=== PATIENT | female | born 1995 | race Caucasian/White ===

== ENCOUNTER 2018-01-22 19:02 | Emergency (ER) | END 2018-01-22 23:14 | disposition home or self-care (01) ==

== ENCOUNTER 2018-12-25 18:42 | Inpatient (IN) | payer OTHER ==
[~2018-12-25] VITALS: Ht 160 cm; Wt 65.8 kg
[~2018-12-25 18:42] MED LIST: PREN-19 PO
[2018-12-25 18:55] VITALS: Ht 160 cm; Wt 65.8 kg
[2018-12-25 18:56] VITALS: BP 112/69; PULSE 94; RESP 19
[2018-12-25] MEDS ORDERED: MAGNESIUM SULFATE 4 GM/100 ML 100 ML IV SCH (20:30)
[2018-12-25] MEDS: LACTATED RINGER'S 1,000 ML IV SCH (21:16)
[2018-12-25] MEDS: MAGNESIUM SULFATE 20 GM/500 ML 500 ML IV SCH (21:41)
[2018-12-25] MEDS: BETAMET NA PHOS/AC(6 MG/ML) 2 ML INJ SYG IM SCH (23:42)
--- NOTE | 2018-12-26 02:36 | TRIAGE ---
OB Triage Datetime Report Generated by CPN: 12/26/2018 02:36 Datetime: 12/26/2018 02:00 Labor Evaluation Frequency: X1 Monitor Mode: External Duration (sec)2399: 40 Quality: Mild Resting Tone Leighton: Relaxed Pain Presence: None/Denies Datetime: 12/26/2018 01:00 Labor Evaluation Frequency: X2 Monitor Mode: External Duration (sec)2399: 50-80 Quality: Mild Resting Tone Leighton: Relaxed Datetime: 12/26/2018 00:00 Labor Evaluation Frequency: X5 Monitor Mode: External Duration (sec)2399: 40-80 Quality: Mild Resting Tone Leighton: Relaxed Pain Assessment Pain Scale: 3 Pain Presence: Intermittent Pain Type: Contraction Pain Location: Abdomen Pain Relief Measures: Comfort Measures Pain Assessment Comments: 3 Datetime: 12/25/2018:56 Stage of : Antepartum Assessment Type: Ongoing Assessment Maternal Assessment Level of Consciousness: Fully Conscious DTR's/Clonus: DTRs 2+; No Clonus Headache: Denies Blurred Vision: No Respiratory Effort: Unlabored; Regular Rhythm; Equal Expansion Breath Sounds, Left: Clear and Equal Breath Sounds, Right: Clear and Equal Nausea/Vomiting: Denies RUQ Epigastric Pain: Denies Lower Extremities Edema: None Degree: None Upper Extremities Edema: None Degree: None Facial Edema: None Temperature Route: Oral Fall Risk Assessment History of Falling: (0) No Secondary Diagnosis: (0) No Ambulatory Aid: (0) Bedrest/Nurse Assist IV Therapy: (0) No Gait: (0) Normal/Bedrest/Immobile Mental Status: (0) Oriented to Own Ability Fall Score: 0 Fall Risk Score Definition: No Risk: No action required Pain Presence: None/Denies Datetime: 12/25/2018 22:00 Stage of : Labor Labor Evaluation Frequency: 2-6 Monitor Mode: External Duration (sec)2399: 40-60 Resting Tone Leighton: Relaxed Pain Assessment Pain Scale: 0 Pain Presence: None/Denies Pain Type: N/A Pain Relief Measures: Comfort Measures Datetime: 12/25/2018 21:18 Stage of : Antepartum Datetime: 12/25/2018 20:59 Stage of : OB Triage Labor Evaluation Frequency: 3-5 Monitor Mode: External Duration (sec)2399: 40-60 Resting Tone Leighton: Relaxed Datetime: 12/25/2018 20:01 Stage of : OB Triage Labor Evaluation Frequency: occasional Monitor Mode: External Resting Tone Leighton: Relaxed Heart Rate FHR Baseline Rate: 140 Monitor Mode: External US Variability: Moderate 6-25 bpm Accelerations: 15X15 Datetime: 12/25/2018 19:01 Assessment Type: Triage Maternal Assessment Level of Consciousness: Fully Conscious DTR's/Clonus: DTRs 2+; No Clonus Headache: Denies Blurred Vision: No Respiratory Effort: Unlabored; Regular Rhythm; Equal Expansion Breath Sounds, Left: Clear and Equal Breath Sounds, Right: Clear and Equal Nausea/Vomiting: Denies RUQ Epigastric Pain: Denies Lower Extremities Edema: None Degree: None Upper Extremities Edema: None Degree: None Facial Edema: None Fall Risk Assessment History of Falling: (0) No Secondary Diagnosis: (0) No Ambulatory Aid: (0) Bedrest/Nurse Assist IV Therapy: (0) No Gait: (0) Normal/Bedrest/Immobile Mental Status: (0) Oriented to Own Ability Fall Score: 0 Fall Risk Score Definition: No Risk: No action required Datetime: 12/25/2018 19:00 Labor Evaluation Frequency: 0 Monitor Mode: External Pattern: Normal: <= 5 Contractions in 10 Minutes Resting Tone Leighton: Relaxed Heart Rate FHR Baseline Rate: 150 Monitor Mode: External US Variability: Moderate 6-25 bpm Accelerations: 10X10 Decelerations: None Category: Category I Datetime: 12/25/2018 18:59 Time of Arrival: 12/25/2018 18:36 EGA: 27.4 Arrived By: Ambulatory Arrived From: Home Chief Complaint: UC'S AND BACK PAIN SINCE 1000 Movement: Present Contractions: Irregular Time Contractions Began: 12/25/2018 10:00 Rupture of Membranes: Denies Vaginal Discharge: Denies Recent Sexual Intercouse: Denies Abdominal Trauma: Not Applicable Patient Complaints: Contractions; Cramping Time Provider Notified: 12/25/2018 19:25 Provider Notified: ALAN Initial Plan: NST UA AND BPP
[2018-12-26] MEDS: MAGNESIUM SULFATE 20 GM/500 ML 500 ML IV SCH ×2 (06:33→15:41)
[2018-12-26] MEDS: LACTATED RINGER'S 1,000 ML IV SCH ×2 (06:34→20:55)
[2018-12-26] MEDS ORDERED: PRENATAL VITAMIN PO SCH (09:00)
--- NOTE | 2018-12-26 15:17 | HP ---
Date/Time of Note Date/Time of Note DATE: 12/26/18 TIME: 15:13 OB - History Hx of Present Free Text/Dictation 23-year-old female 4 para 2 AB 1 at 27+ weeks gestation admitted complaining of a onset of labor contractions uterine cramps started p.m. of the 12/25/2018 She denied rupture of membrane no vaginal bleeding Last Menstrual Period: Jun 21, 2018 Estimated Due Date: Mar 22, 2019 : 4 Para: 2 Spontaneous : 1 Care: Good Care Ultrasounds: Normal mid trimester US Obstetrical Complications: Other (1 of the previous pregnancies with Down syndrome) Medical Complications: None Past Family/Social History * Past Medical, Surgical, Family and Obstetric Histories reviewed from chart. Blood Type: O+ Rubella: immune RPR/VDRL: Negative GBS Status: Unknown HBsAG: Negative OB Admission Exam Vital Signs Vital Signs Vital Signs Date Temp Pulse Resp B/P (MAP) Pulse Ox O2 O2 Flow FiO2 Time Delivery Rate 12/25/18 98.4 94 19 112/69 Room Air 18:56 (83) Physical Exam HEENT: WNL Heart: Rhythm Normal Lungs: Clear, Equal Abdomen: WNL Extremities: Normal Reflexes: Normal Cervical Dilatation: None Effacement: 25% Station: -3 Amniotic Fluid: Clear Heart Rate: 140's Accelerations: Accelerations Present Decelerations: No Decelerations Varibility: Marked Contractions on Admission: 6-10 Minutes Apart Date/Time Contractions Began: 12/25/2018 and p.m. Frequency of Contractions: Every 5 to 6 minutes Duration: Over 1 minute Intensity: Mild Last 72 hours Lab Results CBC & BMP 12/25/18 19:42 Magnesium Level Test 12/26/18 06:52 12/26/18 12:14 Magnesium Level 5.7 *H 6.3 *H OB Assessment/Plan Other Assessment: contractions Short cervix Other plan: Magnesium sulfate for neuro prophylaxis Steroids for lung maturation ROBERT REIS MD Dec 26, 2018 15:17
--- NOTE | 2018-12-26 15:23 | PN ---
Date/Time of Note Date/Time of Note DATE: 12/26/18 TIME: 15:22 OB Subjective Subjective Subjective No complaint of uterine contractions Complaint of feeling "dizzy" OB Objective Objective Objective Vital signs are stable as well as general physical exam On electronic monitoring no uterine contractions seen OB Assessment/Plan Reason for admission: labor Other Assessment: Short cervix and contractions Other plan: Decreased magnesium sulfate rate to 1.5 g every hour Continue to monitor vital signs and continue on steroids dose ROBERT REIS MD Dec 26, 2018 15:23
[2018-12-26] MEDS: BETAMET NA PHOS/AC(6 MG/ML) 2 ML INJ SYG IM SCH (23:46)
[2018-12-27] MEDS: MAGNESIUM SULFATE 20 GM/500 ML 500 ML IV SCH (04:54)
[2018-12-27] MEDS: LACTATED RINGER'S 1,000 ML IV SCH (08:06)
--- NOTE | 2018-12-27 17:33 | DS ---
Date/Time of Note Date/Time of Note DATE: 12/27/18 TIME: 17:32 Obstetrical Discharge Record Final Diagnosis Final Diagnosis: not delivered Other Final Diagnosis uterine contractions and short cervix Complications Tocolytics: Magnesium Sulfate, Other (Nifedipine) Condition on Discharge Physical Assessment Voiding: Yes Bowel Movement: Yes Breast: Soft, non-tender, Filling Fundus: Other Abdomen and Incision: Abdomen is gravid fundal height is 27 Calf Tenderness: No Patient Condition: Good ROBERT REIS MD Dec 27, 2018 17:33
--- NOTE | 2018-12-27 17:36 | DS ---
Date/Time of Note Date/Time of Note DATE: 12/27/18 TIME: 17:35 Discharge Summary Admission/Discharge Info Admit Date/Time Dec 25, 2018 at 20:37 Discharge Date/Time 12/27/2018 Discharge Diagnosis labor and short cervix Patient Condition: Good Hx of Present Illness 23-year-old female admitted with uterine cramps and complaint of contra ctions Symptoms were totally subsided on magnesium sulfate and p.o. nifedipine Hospital Course Patient had uncomplicated hospitalization course Discharge home and his second hospitalization day with good prognosis and condition fully ambulatory on regular diet Was told to have pelvic and bedrest until delivery And also was told to refer to clinic in 2 to 3 days for follow-up Home Meds Reported Medications Vit-Iron,Carbonyl-FA (Prenatabs Rx) 1 Tab Tablet, 1 TAB PO 09/23/13 Follow-up Plan Within a week Primary Care Provider Not On Staff Doctor Time spent on discharge: > 30 minutes Pending Labs Laboratory Tests Test 12/26/18 18:18 12/27/18 00:28 12/27/18 07:15 12/27/18 11:40 Magnesium 4.9 5.4 5.8 5.5 Level mg/dl (1.7-2.5) mg/dl (1.7-2.5 mg/dl (1.7-2.5 mg/dl (1.7-2.5 ) ) ) ROBERT REIS MD Dec 27, 2018 17:36
--- NOTE | 2018-12-27 17:59 | PD.PPDC ---
[facility] Discharge Instruction Provider Information Physician Information 23-year-old female admitted with short cervix and contractions are not tocolysis of contractions Diagnosis [id number] Final Diagnosis: Vzead0o Short cervix and contractions Condition Mtyat0Dm Patient Condition: Utpgh0t Good Diet Idvbd7Ex Diet: Ndwmh7z Resume Regular Diet Activity/Restrictions Onetv7Zn Activity: Hpyfu6r May Shower Imbuv5Ni Restrictions: Satzg4l No Exercising No Lifting Nothing in the Vagina Nrbic2Cj Return to Work or School: Iván Dec 27, 2018 (After delivery) Follow-up Follow-up with Physician: 2, Day/Days (In clinic for follow-up) Return to clinic for Comment: Pelvic and bedrest until delivery ROBERT REIS MD Dec 27, 2018 17:59
[2018-12-27] MEDS ORDERED: NIFEdipine 10 MG CAP PO SCH (18:00)
[2018-12-27] MEDS ORDERED: PROG100C5 VAG (18:01)
[2018-12-27] MEDS ORDERED: NIFE10CA PO (18:01)
[2018-12-27] MEDS ORDERED: PROGESTERONE 100 MG CAP VAG SCH (21:00)
== END 2018-12-27 20:20 | disposition home or self-care (01) | DRG 832 ==
LOC: OBT 18:42 → L-D 18:42 → OBT 20:15 → PP1 20:37
PROVIDERS: ADMIT Obstetrics & Gynecology; ATTEND Obstetrics & Gynecology
DX: O47.02 False labor before 37 completed weeks of gestation, second trimester (principal); O26.872 Cervical shortening, second trimester; Z3A.27 27 weeks gestation of pregnancy
CPT/HCPCS: 76815; 76817; 76818; 81003; 83735; 85025; 87086; G0463; J0702; J3475; J7120

== ENCOUNTER 2019-03-09 02:30 | Inpatient (IN) | payer OTHER ==
[~2019-03-09] VITALS: Ht 162.6 cm; Wt 68.2 kg
[~2019-03-09 02:30] MED LIST changes: +CALC600T24 PO; +FERR134T PO; +NIFE10CA PO; +PROG100C5 VAG
[2019-03-09 03:08] VITALS: BP 121/73; PULSE 80; RESP 18
[2019-03-09] MEDS ORDERED: LACTATED RINGER'S 1,000 ML IV SCH ×2 (03:46→16:36)
[2019-03-09] MEDS ORDERED: AMPICILLIN 2 GM/NS (PMX) 100 ML IVPB ONE (04:00)
[2019-03-09] MEDS ORDERED: METHYLERGONOVINE 0.2 MG INJ IM PRN ×2 (04:00→17:00)
[2019-03-09] MEDS ORDERED: CEFAZOLIN 2 GM/50 ML (PMX) 50 ML IVPB SCH (04:00)
[2019-03-09] MEDS ORDERED: CARBOPROST 250 MCG INJ IM PRN ×2 (04:00→17:00)
[2019-03-09] MEDS ORDERED: OXYTOCIN 30 UNITS/LR 500 ML IV SCH (04:00)
[2019-03-09] MEDS ORDERED: OXYTOCIN 30 UNITS/LR 500 ML IV PRN ×2 (04:00→17:00)
[2019-03-09] MEDS ORDERED: MISOPROSTOL 200 MCG TAB PR PRN ×2 (04:00→17:00)
[2019-03-09] MEDS ORDERED: AMPICILLIN 1 GM/NS (PMX) 50 ML IVPB SCH (08:00)
[2019-03-09] MEDS ORDERED: LACTATED RINGER'S 1,000 ML IV ONE (08:42)
[2019-03-09] MEDS ORDERED: METOCLOPRAMIDE 10 MG INJ IV ONE (09:00)
[2019-03-09] MEDS ORDERED: FAMOTIDINE 20 MG INJ IV ONE (09:00)
[2019-03-09] MEDS ORDERED: CITRIC ACID/NA CITRATE 30 ML CUP PO ONE (09:00)
[2019-03-09] MEDS ORDERED: morphine SULFATE/PF (10 MG/10 ML) INJ ONE (11:54)
[2019-03-09] MEDS ORDERED: ONDANSETRON 4 MG INJ ONE (12:33)
[2019-03-09] MEDS ORDERED: PHENYLephrine (100 MCG/ML) 10ML SYG ONE ×2 (12:36→12:50)
[2019-03-09] MEDS ORDERED: OXYTOCIN 30 UNITS/LR 500 ML IV ONE (12:50)
[2019-03-09] MEDS ORDERED: DIPHENHYDRAMINE 50 MG INJ IV PRN ×3 (13:00→17:00)
[2019-03-09] MEDS ORDERED: ZOLPIDEM 5 MG TAB PO PRN ×2 (13:00→17:00)
[2019-03-09] MEDS ORDERED: MEPERIDINE 25 MG INJ IV PRN (13:00)
[2019-03-09] MEDS ORDERED: PROCHLORPERAZINE 10 MG INJ IV PRN (13:00)
[2019-03-09] MEDS ORDERED: HYDROmorphONE 0.5 MG/0.5 ML SYG IV PRN ×2 (13:00)
[2019-03-09] MEDS ORDERED: ONDANSETRON 4 MG INJ IV PRN ×3 (13:00→17:00)
[2019-03-09] MEDS ORDERED: NALOXONE (0.4 MG/ML) INJ IV PRN (13:00)
[2019-03-09] MEDS ORDERED: HYDROmorphONE 1 MG/5 ML IV SYRINGE IV PRN ×3 (13:00)
[2019-03-09] MEDS ORDERED: KETOROLAC 30 MG INJ IV PRN ×2 (13:00)
[2019-03-09] MEDS ORDERED: FENTAnyl 50 MCG/ML VIAL IV PRN ×3 (13:00)
[2019-03-09] MEDS ORDERED: EPHEDrine 25 MG/5 ML SYG ONE (13:17)
[2019-03-09 16:30] VITALS: BP 98/57; PULSE 67; RESP 18
[2019-03-09 16:45] VITALS: BP 109/55; PULSE 68; RESP 18
[2019-03-09] MEDS ORDERED: OXYCODONE/ACETAMINOPHEN (5/325) TAB PO PRN ×2 (17:00)
[2019-03-09] MEDS ORDERED: LANOLIN HPA 1 PKT TOP PRN (17:00)
[2019-03-09 17:15] VITALS: BP 109/63; PULSE 71; RESP 18
[2019-03-09 17:45] VITALS: BP 111/71; PULSE 82; RESP 19
[2019-03-09 19:50] VITALS: BP 115/75; PULSE 75; RESP 18
[2019-03-09] MEDS: SENNA/DOCUSATE NA (8.6MG/50MG) TAB PO SCH (21:25)
[2019-03-10] VITALS: BP 106/65; PULSE 75; RESP 20
[2019-03-10] MEDS: LACTATED RINGER'S 1,000 ML IV SCH ×3 (02:27→18:30)
[2019-03-10 08:00] VITALS: BP 114/57; PULSE 100; RESP 20
[2019-03-10] MEDS: SENNA/DOCUSATE NA (8.6MG/50MG) TAB PO SCH ×2 (09:34→21:15)
[2019-03-10] MEDS ORDERED: MEASLES,MUMPS,RUBELLA VACCINE INJ SC* ONE (15:30)
[2019-03-10 16:00] VITALS: BP 117/66; PULSE 99; RESP 18
[2019-03-10] MEDS: IBUPROFEN 600 MG TAB PO SCH ×2 (17:32→23:42)
[2019-03-10 20:00] VITALS: BP 104/60; PULSE 80; RESP 18
[2019-03-10] MEDS: FERROUS GLUCONATE (EC) 325 MG TAB PO SCH (21:15)
[2019-03-11 04:01] VITALS: BP 112/66; PULSE 80; RESP 18
[2019-03-11] MEDS: IBUPROFEN 600 MG TAB PO SCH ×4 (05:41→22:47)
[2019-03-11 08:00] VITALS: BP 112/61; PULSE 85; RESP 18
[2019-03-11] MEDS ORDERED: MEASLES,MUMPS,RUBELLA VACCINE INJ SC* ONE (09:00)
[2019-03-11] MEDS: SENNA/DOCUSATE NA (8.6MG/50MG) TAB PO SCH ×2 (09:19→21:00)
[2019-03-11] MEDS: FERROUS GLUCONATE (EC) 325 MG TAB PO SCH ×2 (09:19→21:23)
[2019-03-11 16:00] VITALS: BP 115/59; PULSE 93; RESP 16
[2019-03-11 21:30] VITALS: BP 113/65; PULSE 94; RESP 19
[2019-03-12] MEDS: IBUPROFEN 600 MG TAB PO SCH ×2 (06:07→12:00)
[2019-03-12 08:00] VITALS: BP 112/63; PULSE 77; RESP 18
[2019-03-12] MEDS: SENNA/DOCUSATE NA (8.6MG/50MG) TAB PO SCH (09:00)
[2019-03-12] MEDS ORDERED: DIPHTH/TET/ACEL PERTUSS (ADULT) 0.5 ML VIAL IM* ONE (09:00)
[2019-03-12] MEDS: FERROUS GLUCONATE (EC) 325 MG TAB PO SCH (12:02)
== END 2019-03-12 13:40 | disposition home or self-care (01) | DRG 788 ==
LOC: L-D 02:30 → OBT 02:30 → L-D 03:52 → OBT 03:52 → L-D 11:51 → PP1 16:11
PROVIDERS: ADMIT Obstetrics & Gynecology; ATTEND Obstetrics & Gynecology
PROC: 10D00Z1 Extraction of Products of Conception, Low, Open Approach (ICD-10-PCS; principal; 2019-03-09 12:30)
DX: O34.211 Maternal care for low transverse scar from previous cesarean delivery (principal); Z3A.38 38 weeks gestation of pregnancy; Z37.0 Single live birth; O99.820 Streptococcus B carrier state complicating pregnancy
CPT/HCPCS: 80307; 82962; 85025; 85610; 85730; 86592; 86703; 86803; 86850; 86900; 86901; 87340; 88307; 99464; G0463; J0290; J0690; J1200; J1885; J2274; J2370; J2405; J2590; J2765; J7120